=== PATIENT | female | born 2005 | race Caucasian/White ===

== ENCOUNTER 2024-01-27 11:27 | Emergency (ER) | payer OTHER ==
[2024-01-27 12:50] LABS: BHCG - Serum Negative (NEGATIVE); Pregs Control Background? CLEAR/WHITE (CLR/WHITE); Pregs Control Bar Appear? YES (CONTROL BAR)
[2024-01-27 12:52] LABS: #Basophils 0.03 10x3/uL (0.0-0.2); #Eosinophils 0.06 10x3/uL (0.0-0.5); #Monocytes 0.39 10x3/uL (0.0-1.1); #Neutrophils 2.39 10x3/uL (1.5-8.4); %Basophils 0.7 % (0.0-2.0); %Eosinophils 1.5 % (0.0-6.0); %Lymphocytes 29.1 % (18.0-47.0); %Monocytes 9.6 % (0.0-10.0); %Neutrophils 58.9 % (40.0-75.0); Hematocrit 41.9 % (34.9-44.5); Hemoglobin 14.9 g/dL (12.0-15.5); Mean Corpuscular HGB CONC 35.6 g/dL (32.0-36.0); Mean Corpuscular Volume 81.7 fL (81.6-98.3); Mean Platelet Volume 10.5 fL (7.4-10.4); RBC Distribution Width 12.2 % (11.5-14.5); Red Blood Cell (RBC) Count 5.13 10x6/uL (3.90-5.03); White Blood Cell (WBC) Count 4.1 10x3/uL (3.5-10.5)
[2024-01-27 12:54] LABS: INR-International Normal Ratio 1.1; PTT 26.5 sec (22.0-33.0); Prothrombin Time 11.5 sec (9.5-12.1)
[2024-01-27 13:10] LABS: Platelet Count 96 10x3/uL (150-450)
[2024-01-27 13:11] LABS: Platelet Adequacy Comment Appears Decreased; RBC Morph Comment Within Normal Limits
[2024-01-27 13:23] LABS: ALT (SGPT) 19 U/L (8-55); AST (SGOT) 21 U/L (5-30); Albumin 4.4 g/dL (3.5-5.0); Alkaline Phosphatase 104 U/L (40-100); Anion Gap 15 mmol/L (10-20); BUN (Urea Nitrogen) 10 mg/dL (8.4-21.0); Bilirubin, Total 0.4 mg/dL (0.2-1.2); Calc. Creatinine Clearance 0 mL/min (70-130); Calcium 9.6 mg/dL (7.8-10.44); Carbon Dioxide 21 mmol/L (22-29); Chloride 106 mmol/L (98-107); Estimated GFR 114; Globulin 2.8 g/dL (2.4-3.5); Glucose 84 mg/dL (70-105); Lipase 21 U/L (8-78); Protein, Total 7.2 g/dL (6.0-8.3); Sodium 138 mmol/L (136-145)
[2024-01-27] MEDS ORDERED: Desmopressin Acetate 0.01% Nasal Solution NASAL SCH (14:30)
[2024-01-27 14:31] LABS: Bilirubin Neg (Negative); Blood, Urine 10 (Negative); Clarity Clear (Clear); Glucose, Urine (Dipstick) Normal (Negative); Ketone, Urine 50 mg/dL (Negative); Leukocyte Negative (Negative); Nitrite Negative (Negative); Protein, Urine (Dipstick) Negative (Neg-Trace); Specific Gravity, Urine 1.015 (1.005-1.030); Urobilinogen Normal mg/dL (Less than 2)
[2024-01-27 16:03] LABS: CAUTI Indications for Culture Immunosuppressed; RBC/HPF 0-3 HPF (0-3); Squamous Epithelial 0-3 HPF (0-3); WBC/HPF 0-3 HPF (0-3)
[2024-01-27 16:04] LABS: Bacteria/HPF 1+ HPF (None Seen)
[2024-01-27 16:05] LABS: Urine Culture Reflex Yes Yes
== END 2024-01-27 15:13 | disposition home or self-care (01) ==
LOC: CSHERS 11:27
DX: K92.1 Melena (principal); D68.00 Von Willebrand disease, unspecified
CPT/HCPCS: 80053; 81001; 83690; 84703; 85025; 85246; 85610; 85730; 86850; 86900; 86901; 87077; 87086; 99284